=== PATIENT | female | born 1995 | race Caucasian/White ===

== ENCOUNTER 2022-06-22 23:04 | Inpatient (IN) | payer BC ==
[~2022-06-22] VITALS: Ht 170.2 cm; Wt 77.7 kg
[2022-06-22 23:25] VITALS: BP 129/80; PULSE 74; TEMP 97.6
--- NOTE | 2022-06-22 23:25 | NUR ---
2325 G1L0 39.5 WEEKS GEST ADM TO LR6 WITH C/O SROM AT 2200. LEAKING CLEAR FLUID. EFM ON. SVE WITH POSITIVE AMNIOTRACE AND /-. ADM ASSESSMENT COMPLETED. 2345 DR WRIGHT NOTIFIED AND ADM ORDERS RECEIVED.
[2022-06-22] MEDS ORDERED: CEPHALEXIN500 M1 PO (23:29)
[2022-06-22] MEDS ORDERED: BACTROBAN 22GM22 GM TP (23:30)
[2022-06-22] MEDS ORDERED: PRENATA1 CTB PO (23:30)
[2022-06-22 23:50] VITALS: BP 126/81; PULSE 82
[2022-06-23] VITALS (24 sets, daily range): BP systolic 106–137; BP diastolic 56–97; PULSE 67–166; TEMP 97.7–98.5
--- NOTE | 2022-06-23 00:10 | NUR ---
0010 INT STARTED AND LAB OBTAINED. EFM OFF AND UP TO AMB.
[2022-06-23 00:37] LABS: BASO % 0.3 % (0.0-2.0); EOS # 0.1 K/mm3 (0.0-0.7); EOS % 0.7 % (0.0-4.0); GRAN # 6.9 K/mm3 (1.4-6.5); GRAN % 72.9 % (42.2-75.2); HEMATOCRIT 37.5 % (37.0-47.0); LYMPH # 1.6 K/mm3 (1.2-3.4); MEAN CELL VOLUME 87 fl (80.0-100.0); MEAN CORPUSCULAR HEMOGLOBIN 30 pg (27-31); MEAN CORPUSCULAR HGB CONC 35 g/dl (33.0-37.0); MEAN PLATELET VOLUME 11.1 fl (7.4-10.4); MONO # 0.8 K/mm3 (0.1-0.6); MONO % 8.6 % (1.7-9.3); PLATELET COUNT 193 K/mm3 (130-400); REDCELL DISTRIBUTION WIDTH-CV 13.2 % (11.5-14.5)
--- NOTE | 2022-06-23 00:50 | NUR ---
0050 RETURNED TO ROOM FROM AMB. ON BIRTHING BALL.
--- NOTE | 2022-06-23 01:40 | NUR ---
0140 UP TO VOID. REQUESTING EPID. PADDED PRODUCTS INSPECTOR TRIMMER NOTIFIED. LR TO INT SITE.
--- NOTE | 2022-06-23 02:00 | NUR ---
0200 SITTING ON SIDE OF BED FOR EPIDURAL PLACEMENT. 0213 EPID DOSED. SEE ANESTHSIA RECORD FOR MORE INFORMATION.
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
--- NOTE | 2022-06-23 04:55 | NUR ---
2661 DR WRIGHT HERE. READIED FOR DELIVERY 0502 DELIVERY VIABLE MALE OVER 1ST DEGREE LAC. IV CONTS TO INFUSE.
[2022-06-24 03:00] VITALS: BP 121/76; PULSE 79; TEMP 98.3
[2022-06-24 08:29] VITALS: BP 116/71; PULSE 64; TEMP 97.8
--- NOTE | 2022-06-24 09:02 | NUR ---
Initial visit; Patient thanked Rn Med Surg for offering congratulations and God's blessings for the of their son. Rn Med Surg thanked patient for choosing [facility]/via [facility].
[2022-06-24] MEDS ORDERED: IBU800 M1 PO (09:03)
--- NOTE | 2022-06-24 09:20 | NUR ---
Pt flu vaccine status documented by one nurse as needed and requested and by another nurse as current. Per pt, flu vaccine received at [facility] this season and does not need during this stay.
== END 2022-06-24 17:05 | disposition home or self-care (01) | DRG 807 ==
LOC: LDRO 23:04 → OB 23:52 → LDR 23:52 → OB 06-23 08:48
PROVIDERS: ADMIT Student in an Organized Health Care Education/Training Program
PROC: 10E0XZZ Delivery of Products of Conception, External Approach (ICD-10-PCS; principal; 2022-06-23)
PROC: 0HQ9XZZ Repair Perineum Skin, External Approach (ICD-10-PCS; 2022-06-23)
PROC: 0UQKXZZ Repair Hymen, External Approach (ICD-10-PCS; 2022-06-23)
DX: O34.63 Maternal care for abnormality of vagina, third trimester (principal); Z37.0 Single live birth; N90.7 Vulvar cyst; O70.0 First degree perineal laceration during delivery; Z3A.39 39 weeks gestation of pregnancy
CPT/HCPCS: J2590; J7120

== ENCOUNTER 2023-12-04 19:49 | Outpatient (CLI) | payer BC ==
[~2023-12-04] VITALS: Ht 170.2 cm; Wt 76.8 kg
[~2023-12-04 19:49] MED LIST: BACTROBAN 22GM22 GM TP; CEPHALEXIN500 M1 PO; IBU800 M1 PO; PRENATA1 CTB PO
--- NOTE | 2023-12-04 20:00 | NUR ---
Ambulatory to unit for labor assessemnt. Oreinted to room, monitor, plan of care. Pt reports mild cramping since SVE in office at 1500.
[2023-12-04 20:15] VITALS: BP 130/73; PULSE 98; TEMP 97.8
[2023-12-04] MEDS ORDERED: LR 1,000 ML IV PRN (20:30)
[2023-12-04 21:00] VITALS: BP 123/67; PULSE 83
--- NOTE | 2023-12-04 21:00 | NUR ---
Pt reports ctx feel stronger. Off monitro up to x 30 min and will monitor and recheck cvx at that time.
[2023-12-04 22:00] VITALS: BP 122/71; PULSE 129; TEMP 98.3
--- NOTE | 2023-12-04 22:00 | NUR ---
back to bed after walking. Pt states "I think the ctx are stronger"
[2023-12-04 22:30] VITALS: BP 119/68; PULSE 87; TEMP 98.7
--- NOTE | 2023-12-04 22:30 | NUR ---
Repeat SVE with no changes noted. No bloody show or LOF.
--- NOTE | 2023-12-04 22:50 | NUR ---
Discharge instructions reviewed with pt and spouse. Questions invited and answered. Ambulatory off unit.
== END 2023-12-04 22:50 | disposition home or self-care (01) ==
LOC: LDRO 19:49
DX: O26.893 Other specified pregnancy related conditions, third trimester (principal); Z3A.39 39 weeks gestation of pregnancy

== ENCOUNTER 2023-12-12 23:59 | Inpatient (IN) | payer BC ==
[~2023-12-12] VITALS: Ht 170.2 cm; Wt 76.8 kg
[2023-12-13] VITALS (19 sets, daily range): BP systolic 105–130; BP diastolic 59–82; PULSE 67–99; TEMP 97.6–98
--- NOTE | 2023-12-13 00:15 | NUR ---
0015- PT ARRIVED TO UNIT VIA WHEELCHAIR. PT INSTRUCTED TO CHANGE INTO GOWN. 0017- RN TO BEDSIDE, PT REPORTS CTX "A COUPLE MINUTES APART, SROM AT 2310 WITH CLEAR FLUID, AND POSITIVE MOVEMENT. FHR AND TOCO MONITORS APPLIED TO PT, OBTAINED VS, AMNIOTRACE POSITIVE. 0030- PLAN OF CARE FOR LABOR CHECK DISCUSSED, CONSENT FOR CERVICAL EXAM OBTAINED. SVE BY DEION RN, /-3. 0033- DR. WRIGHT CALLED AND UPDATED ON PT STATUS. INSTRUCTED RN TO START ABX FOR GBS+ AND IF NOT PROGRESSED BY 0300 START PITOCIN. 0035- PIV INSTERTED INTO LH. LABS OBTAINED. LR INFUSING. 0059- SCHOLASTIC APTITUDE TEST GRADER CALLED FOR EPIDURAL PLACEMENT PER PT REQUEST. 0104- PEN G STARTED FOR GBS+.
[2023-12-13] MEDS ORDERED: Penicillin G Potassium 5,000,000 UNITS in NS 100 ML IV ONE (00:45)
[2023-12-13] MEDS ORDERED: LR 1,000 ML IV SCH (00:45)
[2023-12-13 00:59] LABS: BASO % 0.4 % (0.0-2.0); EOS % 0.4 % (0.0-4.0); GRAN # 7.3 K/mm3 (1.4-6.5); HEMOGLOBIN 13.3 g/dl (12.5-16.0); LYMPH # 2.6 K/mm3 (1.2-3.4); LYMPH % 24.3 % (20.0-51.0); MEAN CELL VOLUME 88 fl (80.0-100.0); MEAN CORPUSCULAR HEMOGLOBIN 31 pg (27-31); MEAN CORPUSCULAR HGB CONC 35 g/dl (33.0-37.0); MEAN PLATELET VOLUME 11.5 fl (7.4-10.4); MONO # 0.8 K/mm3 (0.1-0.6); MONO % 7.4 % (1.7-9.3); PLATELET COUNT 182 K/mm3 (130-400); RED BLOOD COUNT 4.32 M/mm3 (4.10-5.30); REDCELL DISTRIBUTION WIDTH-CV 13.1 % (11.5-14.5)
[2023-12-13] MEDS ORDERED: ROPivacaine PF 0.2% 200 ML IV ONE (01:20)
[2023-12-13] MEDS ORDERED: diphenhydrAMINE 25 MG CAP PO PRN (02:00)
[2023-12-13] MEDS ORDERED: Naloxone 0.4 MG/ML VIAL IV PRN ×2 (02:00→02:45)
[2023-12-13] MEDS ORDERED: ePHEDrine 50 MG/10 ML VIAL IV PRN (02:00)
[2023-12-13] MEDS ORDERED: Ondansetron 4 MG/2 ML VIAL IV PRN (02:00)
[2023-12-13] MEDS ORDERED: diphenhydrAMINE 50 MG/ML 1 ML VIAL IV PRN (02:00)
[2023-12-13] MEDS ORDERED: LR & Oxytocin 500 ML IV SCH (02:15)
--- NOTE | 2023-12-13 02:17 | NUR ---
0138- EPIDURAL PLACEMENT COMPLETE, PT POSITIONED IN WEDGE LEFT, MONITORS ADJUSTED. 0154- PT STILL NOT COMFORTABLE AFTER EPIDURAL REPORTS FEELING PRESSURE. SVE BY MILLIE AL, /+1. AILIN MANAGER GARDEN TO BEDSIDE TO ASSESS EPIDURAL PAIN MANAGEMENT. 0155- DR. WRIGHT CALLED FOR DELIVERY. 0208- DR. WRIGHT AT BEDSIDE SVE COMPLETE +1. 0211- PT POSITIONED IN FOOT PLATES, AND BEGINS COACHED PUSHING WITH CTX. DR. WRIGHT AT BEDSIDE. 0217- SPONTANEOUS VAGINAL DELIVERY OF VIABLE FEMALE. VIGOROUS TO MOTHERS ABDOMEN AND CARE OF NURSERY NURSE. 0223- SPONTANEOUS DELIVERY OF PLACENTA, EXAMINED BY DR. WRIGHT. EXAM REVEALS NO NEED FOR REPAIR. 0230- MARIVEL CARE COMPLETE, ICE PACK TO PERINEUM, FEET DOWN FROM FOOT PLATES, AND RECOVERY STARTED.
[2023-12-13] MEDS ORDERED: Acetaminophen 500 MG TAB PO SCH (02:45)
[2023-12-13] MEDS ORDERED: Phenylephrine/Mineral Oil/Petrolatum 57 GM TUBE RC PRN (02:45)
[2023-12-13] MEDS ORDERED: Mag/Al Hydrox/Simeth Susp 30 ML CUP PO PRN (02:45)
[2023-12-13] MEDS ORDERED: Witch Hazel 50% Pads Bulk TUB TP PRN (02:45)
[2023-12-13] MEDS ORDERED: Magnes Hydrox (MOM) 80 MG/ML 30 ML CUP PO PRN (02:45)
[2023-12-13] MEDS ORDERED: Ibuprofen 800 MG TAB PO SCH (02:45)
[2023-12-13] MEDS ORDERED: Loratadine 10 MG TAB PO PRN (02:45)
[2023-12-13] MEDS ORDERED: Measles/Mumps/Rubella Virus Vaccine Live w Diluent 0.5 ML VIAL SQ SCH (02:45)
--- NOTE | 2023-12-13 04:01 | NUR ---
0122- AILIN MARINE EQUIPMENT TEST ENGINEER AT BEDSIDE, EXPLAINED EPIDURAL PLACEMENT, PATIENT VERBALIZING UNDERSTANDING, CONSENT OBTAINED. 0132- TEST DOSE GIVEN.
[2023-12-13] MEDS ORDERED: Penicillin G Potassium 2,500,000 UNITS in NS 100 ML IV SCH (04:33)
--- NOTE | 2023-12-13 05:50 | NUR ---
0530- PT OFFERED DONOVANEDY TO BE TRANSPORTED TO BATHROOM AND ROOM AFTERWARDS. PT DECLINES TO BE MOVED AT THIS TIME.
[2023-12-13] MEDS ORDERED: Sennosides/Docusate 8.6-50 MG TAB PO SCH (08:00)
[2023-12-13] MEDS ORDERED: oxyCODONE 5 MG TAB PO PRN (19:45)
[2023-12-13] MEDS ORDERED: traZODone 50 MG TAB PO PRN (21:00)
[2023-12-14 09:15] VITALS: BP 114/64; PULSE 71; TEMP 97.8
[2023-12-14 17:01] VITALS: BP 104/65; PULSE 84; TEMP 98.1
[2023-12-14 20:10] VITALS: BP 119/79; PULSE 68; TEMP 98.1
[2023-12-15 08:26] VITALS: BP 115/75; PULSE 76; TEMP 97.6
[2023-12-15] MEDS ORDERED: ROXICODONE 55 MG/TAB PO (11:46)
== END 2023-12-15 13:25 | disposition home or self-care (01) | DRG 807 ==
LOC: LDR 23:59 → OB 12-13 06:46
PROVIDERS: ADMIT Student in an Organized Health Care Education/Training Program
PROC: 10E0XZZ Delivery of Products of Conception, External Approach (ICD-10-PCS; principal; 2023-12-13)
DX: O48.0 Post-term pregnancy (principal); Z37.0 Single live birth; Z3A.40 40 weeks gestation of pregnancy; O99.824 Streptococcus B carrier state complicating childbirth; O62.3 Precipitate labor; O69.81X0 Labor and delivery complicated by cord around neck, without compression, not applicable or unspecified
CPT/HCPCS: J2540; J2590; J2795; J7120